=== PATIENT | male | born 1965 | race African-American/Black ===

== ENCOUNTER 2019-07-09 01:32 | Emergency (ER) | payer OTHER ==
[~2019-07-09] VITALS: Ht 182.9 cm; Wt 90.7 kg
[~2019-07-09 01:32] MED LIST: CENTRUM SILVER1 EAC2 PO; CYCLOBENZAPRINE10 MG PO; IBUPROFEN 800800 MG PO
[2019-07-09 03:47] VITALS: BP 133/80
== END 2019-07-09 03:47 | disposition home or self-care (01) ==
LOC: ER 01:32
DX: M54.42 Lumbago with sciatica, left side (principal)